=== PATIENT | male | born 1995 | race Caucasian/White ===

== ENCOUNTER 2021-01-15 17:38 | Emergency (ER) | payer OTHER ==
[2021-01-15] MEDS ORDERED: CYCLOBENZAPRINE5 MG PO (20:17)
[2021-01-15] MEDS ORDERED: NAPROSYN500 MG PO (20:17)
== END 2021-01-15 20:41 | disposition home or self-care (01) ==
LOC: ER1 17:38
DX: S06.9X9A Unspecified intracranial injury with loss of consciousness of unspecified duration, initial encounter (principal); S16.1XXA Strain of muscle, fascia and tendon at neck level, initial encounter; S40.012A Contusion of left shoulder, initial encounter; S50.02XA Contusion of left elbow, initial encounter; F17.200 Nicotine dependence, unspecified, uncomplicated; Z88.2 Allergy status to sulfonamides; Z79.899 Other long term (current) drug therapy; V49.40XA Driver injured in collision with unspecified motor vehicles in traffic accident, initial encounter
CPT/HCPCS: 70450; 72125; 73030; 73080; 99284

== ENCOUNTER 2021-10-16 01:35 | Emergency (ER) | payer SELFPAY ==
[~2021-10-16 01:35] MED LIST: CYCLOBENZAPRINE5 MG PO; NAPROSYN500 MG PO
== END 2021-10-16 09:59 | disposition home or self-care (01) ==
LOC: ER1 01:35
DX: S01.01XA Laceration without foreign body of scalp, initial encounter (principal); S01.81XA Laceration without foreign body of other part of head, initial encounter; S01.111A Laceration without foreign body of right eyelid and periocular area, initial encounter; F17.210 Nicotine dependence, cigarettes, uncomplicated; Y04.8XXA Assault by other bodily force, initial encounter; Y92.524 Gas station as the place of occurrence of the external cause
CPT/HCPCS: 12001; 12013; 70450; 70486; 71045; 72125; 72128; 72131; 99284